=== PATIENT | male | born 1965 | race Hispanic/Latino ===

== ENCOUNTER 2020-05-13 12:51 | Observation (INO) | payer SELFPAY ==
[~2020-05-13] VITALS: Ht 165.1 cm; Wt 82.0 kg
[~2020-05-13 12:51] MED LIST: OMEPRAZOLE20 MG PO; SMZ-TMP DS1 TAB PO
[2020-05-13 13:11] LABS: GFR > 60 ML/MIN (>=60 (CALC)); GFR FOR AFR.AMER. > 60 ML/MIN (>=60 (CALC))
[2020-05-13 13:12] LABS: HEMATOCRIT 52.1 % (39.0-50.0); HEMOGLOBIN 17.6 g/dl (14.0-18.0); MEAN CELL VOLUME 96.5 fL CALC (80.0-100.0); MEAN CORPUSCULAR HGB 32.6 pG CALC (26.0-32.0); MEAN CORPUSCULAR HGB CONC 33.8 g/dL CAL (32.0-36.0); NEUT# 3.16 thou/uL (1.82-7.42); RED BLOOD COUNT 5.4 mill/uL (4.70-6.10); RED CELL DISTRI WIDTH 12.2 % (11.5-15.5)
[2020-05-13 13:35] LABS: ALBUMIN 4.3 g/dL (3.2-5.0); ALKALINE PHOSPHATASE 253 u/l (38-126); ANION GAP 15 (6-22 (CALC)); BILIRUBIN, TOTAL 0.9 mg/dL (0.0-1.4); BUN 15 mg/dL (9-20); CARBON DIOXIDE 23 mmol/l (22-30); CHLORIDE 99 mmol/l (95-108); CREATININE 0.9 mg/dL (0.7-1.3); POTASSIUM 3.6 mmol/l (3.5-5.1); SGOT/AST 31 u/l (17-59); SODIUM 133 mmol/l (137-146); TOTAL PROTEIN 8.2 g/dL (6.3-8.2)
[2020-05-13 13:47] LABS: MYOGLOBIN 32 ng/mL (0 - 121)
[2020-05-13 14:41] LABS: BUN/CREATININE RATIO 18 (12-20 (CALC))
[2020-05-13] MEDS ORDERED: ZETIA10 MG PO (16:03)
[2020-05-13] MEDS ORDERED: GLIPIZIDE ER10 M1 PO (16:04)
[2020-05-13] MEDS ORDERED: ZESTRIL10 M1 PO (16:04)
[2020-05-13] MEDS ORDERED: OMEPRAZOLE DR10 MG PO (16:05)
[2020-05-13 16:56] VITALS: BP 143/82
[2020-05-13 19:25] VITALS: BP 127/79
[2020-05-13 22:43] LABS: URINE BILIRUBIN - DIPSTICK NEGATIVE (NEGATIVE); URINE BLOOD DIPSTICK NEGATIVE (NEGATIVE); URINE COLOR YELLOW; URINE GLUCOSE - DIPSTICK >=1000 mg/dL (NEGATIVE); URINE KETONE TRACE mg/dL (NEGATIVE); URINE LEUK ESTERASE NEGATIVE (NEGATIVE); URINE NITRITE - DIPSTICK NEGATIVE (Negative); URINE PROTEIN - DIPSTICK TRACE mg/dL (NEG-TRACE); URINE SPECIFIC GRAVITY 1.015; URINE UROBILINOGEN - DIPSTICK 0.2 E.U./dL (0.2)
[2020-05-14] VITALS (7 sets, daily range): BP systolic 113–124; BP diastolic 62–79
[2020-05-14 06:52] LABS: HEMATOCRIT 49.7 % (39.0-50.0); HEMOGLOBIN 17.1 g/dl (14.0-18.0); MEAN CELL VOLUME 95.9 fL CALC (80.0-100.0); MEAN CORPUSCULAR HGB CONC 34.4 g/dL CAL (32.0-36.0); RED BLOOD COUNT 5.18 mill/uL (4.70-6.10); RED CELL DISTRI WIDTH 12.3 % (11.5-15.5)
[2020-05-14 07:04] LABS: ANION GAP 13 (6-22 (CALC)); BUN 13 mg/dL (9-20); BUN/CREATININE RATIO 18 (12-20 (CALC)); CARBON DIOXIDE 22 mmol/l (22-30); CHLORIDE 102 mmol/l (95-108); CHOLESTEROL HDL RATIO 9.6 (<4.4 (CALC)); CREATININE 0.7 mg/dL (0.7-1.3); GFR > 60 ML/MIN (>=60 (CALC)); GFR FOR AFR.AMER. > 60 ML/MIN (>=60 (CALC)); HDL CHOLESTEROL 28 mg/dL (>=40); MAGNESIUM 1.6 mg/dL (1.6-2.3); POTASSIUM 3.8 mmol/l (3.5-5.1); SODIUM 133 mmol/l (137-146); TOTAL CHOLESTEROL 269 mg/dl (0-199)
[2020-05-14 07:20] LABS: TOTAL TRIGLYCERIDES 2079 mg/dl (30-149)
[2020-05-14] MEDS ORDERED: ZETIA10 MG PO (08:35)
[2020-05-14] MEDS ORDERED: OMEPRAZOLE DR10 MG PO (08:35)
[2020-05-14] MEDS ORDERED: TRIGLIDE160 MG PO (08:35)
[2020-05-14] MEDS ORDERED: METFORMIN HYD1000 MG PO (08:35)
[2020-05-14] MEDS ORDERED: ZESTRIL10 M1 PO (08:35)
[2020-05-14] MEDS ORDERED: ENTERIC COATED325 MG PO (08:35)
== END 2020-05-14 17:51 | disposition left against medical advice (07) | DRG 69 ==
LOC: ED 12:51 → ED-I 14:10 → ED 14:38 → MS2 14:39
PROVIDERS: Emergency Medicine; Nurse Practitioner; ADMIT Internal Medicine; ATTEND Internal Medicine
DX: G45.9 Transient cerebral ischemic attack, unspecified (principal); I10 Essential (primary) hypertension; E11.65 Type 2 diabetes mellitus with hyperglycemia; E11.69 Type 2 diabetes mellitus with other specified complication; E78.5 Hyperlipidemia, unspecified; E78.1 Pure hyperglyceridemia; T38.3X6A Underdosing of insulin and oral hypoglycemic [antidiabetic] drugs, initial encounter; T46.5X6A Underdosing of other antihypertensive drugs, initial encounter; Z91.128 Patient's intentional underdosing of medication regimen for other reason; Z79.84 Long term (current) use of oral hypoglycemic drugs; Z20.822 Contact with and (suspected) exposure to COVID-19
CPT/HCPCS: A9579; G0378; J1650; Q9967